=== PATIENT | male | born 1975 | race Two or more races ===

== ENCOUNTER 2017-02-24 01:53 | Emergency (ER) | payer SELFPAY ==
[~2017-02-24] VITALS: Ht 170.2 cm; Wt 86.2 kg
[2017-02-24] MEDS ORDERED: IV NORMAL SALINE 1000ML BAG 1,000 ML IV SCH (02:30)
[2017-02-24] MEDS ORDERED: ONDANSETRON PF 4 MG/2 ML VIAL. IV ONE ×2 (02:30→03:30)
[2017-02-24] MEDS ORDERED: KETOROLAC TROMETHAMINE 30 MG/ML INJ. IV ONE (02:30)
--- NOTE | 2017-02-24 02:32 | PHYS DOC ---
Past Medical History Past Medical History: No Pertinent History Past Surgical History: No Surgical History Alcohol Use: None Drug Use: None Adult General Chief Complaint Chief Complaint: ABDOMINAL PAIN HPI HPI Patient is a 41 year old male who presents with family for multiple episodes of nonbloody nonbilious emesis and nonbloody diarrhea associated with mild crampy diffuse abdominal pain, chills and sweats, myalgia, and headache. He thinks he has food poisoning. He denies sick contacts, recent travel or antibiotics. He denies measured fever, chest pain, cough, dyspnea, rhinorrhea, nasal congestion, sore throat, dysuria, back pain. Review of Systems Review of Systems Constitutional: Denies measured fever [] Eyes: Denies change in visual acuity, redness, or eye pain [] HENT: Denies nasal congestion or sore throat [] Respiratory: Denies cough or shortness of breath [] Cardiovascular: No additional information not addressed in HPI [] GI: Denies bloody stools or bloody emesis [] : Denies dysuria or hematuria [] Musculoskeletal: Denies back pain or joint pain [] Integument: Denies rash or skin lesions [] Neurologic: Denies focal weakness or sensory changes [] Endocrine: Denies polyuria or polydipsia [] Current Medications Current Medications Current Medications Medications (Trade) Dose Ordered Sig/Courtney Start Time Stop Time Status Last Admin Dose Admin Ketorolac Tromethamine (Toradol) 15 mg 1X ONCE 02/24/17 02:30 02/24/17 02:31 DC 02/24/17 02:42 15 MG Loperamide HCl (Imodium) 2 mg 1X ONCE 02/24/17 03:30 02/24/17 03:31 DC 02/24/17 03:41 2 MG Multi-Ingredient Mouthwash/Gargle (Gi Cocktail Single Dose) 15 ml 1X ONCE 02/24/17 03:30 02/24/17 03:31 DC 02/24/17 03:41 15 ML Ondansetron HCl (Zofran) 4 mg 1X ONCE 02/24/17 03:30 02/24/17 03:31 DC 02/24/17 03:41 4 MG Sodium Chloride (Iv Sodium Chloride 0.9% 1000ml Bag) 1,000 ml @ 1,000 mls/hr Q1H 02/24/17 02:30 02/24/17 03:29 DC 02/24/17 02:34 1,000 MLS/HR Allergies Allergies Allergies Coded Allergies Type Severity Reaction Last Updated Verified No Known Drug Allergies 02/24/17 No Physical Exam Physical Exam Constitutional: Well developed, well nourished, no acute distress, non-toxic appearance. [] HENT: Normocephalic, atraumatic, bilateral external ears normal, oropharynx moist, nose normal. [] Eyes: PERRLA, EOMI. [] Neck: Normal range of motion, supple. [] Cardiovascular:Heart rate regular rhythm [] Lungs & Thorax: Bilateral breath sounds clear to auscultation [] Abdomen: Bowel sounds normal, soft, mild general tenderness, no guarding or rebound. [] Skin: Warm, dry, no erythema, no rash. [] Back: No tenderness, no CVA tenderness. [] Extremities: No tenderness, ROM intact, no edema. [] Neurologic: Alert and oriented X 3, normal motor function, normal sensory function, no focal deficits noted. [] Psychologic: Affect normal, judgement normal, mood normal. [] Current Patient Data Vital Signs Vital Signs Date Time Temp Pulse Resp B/P Pulse Ox O2 Delivery O2 Flow Rate FiO2 02/24/17 02:07 100.8 108 16 124/74 95 Room Air 100.8 Lab Values Laboratory Tests Test 02/24/17 02:41 POC Hemoglobin 16.3g/dL (14-18) POC Hematocrit 48% (37-52) POC Sodium 137mmol/L (135-145) POC Potassium 3.9mmol/L (3.5-5.0) POC Chloride 100mmol/L (98-110) POC Total CO2 23mmol/L (23-32) Anion Gap 19mmol/L (6-14) H POC Blood Urea Nitrogen 18mg/dL (8-26) POC Creatinine 0.6mg/dL (0.5-1.4) Glucose Level 112mg/dL (70-99) H POC Ionized Calcium (Juan) 1.16mmol/L (1.13-1.32) Laboratory Tests 02/24/17 02:41 Course & Med Decision Making Course & Med Decision Making Pertinent Labs and Imaging studies reviewed. (See chart for details) Workup is unremarkable. He is feeling better after medications and tolerating oral intake. Discussed supportive care. Return precautions given. He understands and agrees with plan. Dragon Disclaimer Dragon Disclaimer This electronic medical record was generated, in whole or in part, using a voice recognition dictation system. Departure Departure Impression: Primary Impression: Nausea vomiting and diarrhea Disposition: 01 HOME, SELF-CARE Condition: STABLE Referrals: NO PCP (PCP) Patient Instructions: Diet for Diarrhea, Adult, Nausea and Vomiting, Easy-to- Read Additional Instructions: Take promethazine as needed for nausea. Take Tylenol or ibuprofen as needed for pain. Take Imodium as needed to slow diarrhea. Drink liquids to stay hydrated. Follow-up with your primary care doctor within one week. Return for any concerns. Scripts Promethazine Hcl 25 Mg Tablet1 Tab PO PRN Q6HRS PRN NAUSEA #10 TAB Prov:Raymond ALVAREZ MD 02/24/17 Raymond ALVAREZ MD Feb 24, 2017 02:32
[2017-02-24 02:50] LABS: POTASSIUM ISTAT 3.9 mmol/L (3.5-5.0)
[2017-02-24] MEDS ORDERED: LIDO:MAALOX:DONNATAL 1:1:1 15 ML SINGLE DOSE SWSW ONE (03:30)
[2017-02-24] MEDS ORDERED: LOPERAMIDE 2 MG CAPSULE PO ONE (03:30)
[2017-02-24] MEDS ORDERED: PROM25TA10 PO (04:06)
[2017-02-24 04:23] VITALS: BP 126/74
== END 2017-02-24 04:25 | disposition home or self-care (01) ==
LOC: ER 01:53
DX: R11.2 Nausea with vomiting, unspecified (principal); R19.7 Diarrhea, unspecified; R51 Headache; M79.1 Myalgia; R10.84 Generalized abdominal pain
CPT/HCPCS: 80047; 96361; 96374; 96375; 96376; 99285; J1885; J2405; J7030

== ENCOUNTER 2019-08-16 01:15 | Emergency (ER) | payer SELFPAY ==
[~2019-08-16] VITALS: Ht 170.2 cm; Wt 90.7 kg
[~2019-08-16 01:15] MED LIST: PROM25TA10 PO
[2019-08-16] MEDS ORDERED: ONDANSETRON PF 4 MG/2 ML VIAL. IV ONE (02:00)
[2019-08-16] MEDS ORDERED: IV NORMAL SALINE 1000ML BAG 1,000 ML IV SCH (02:00)
[2019-08-16] MEDS ORDERED: KETOROLAC 30 MG/ML VIAL. IV ONE (02:00)
[2019-08-16 02:03] LABS: BASO # 0.1 x10^3/uL (0.0-0.2); BASO % 1 % (0-3); EOS # 0.1 x10^3/uL (0.0-0.7); EOS % 1 % (0-3); HEMATOCRIT 42.3 % (39.0-53.0); HEMOGLOBIN 14.6 g/dL (13.0-17.5); LYMPH # 3.4 x10^3/uL (1.0-4.8); LYMPH % 38 % (24-48); MEAN CORPUSCULAR HEMOGLOBIN 31 pg (25-35); MEAN CORPUSCULAR HGB CONC 35 g/dL (31-37); MEAN CORPUSCULAR VOLUME 90 fL (79-100); MONO # 0.5 x10^3/uL (0.0-1.1); MONO % 6 % (0-9); NEUT # 4.8 x10^3/uL (1.8-7.7); NEUT % 54 % (31-73); PLATELET COUNT 238 x10^3/uL (140-400); RED BLOOD COUNT 4.71 x10^6/uL (4.30-5.70); RED CELL DISTRIBUTION WIDTH 13.1 % (11.5-14.5); WHITE BLOOD COUNT 8.9 x10^3/uL (4.0-11.0)
[2019-08-16 02:04] LABS: BILIRUBIN,URINE NEGATIVE (NEG); CLARITY,URINE CLEAR; COLOR,URINE YELLOW; NITRITE,URINE NEGATIVE (NEG); PROTEIN,URINE NEGATIVE (NEG-TRACE); UROBILINOGEN,URINE 0.2 mg/dL (0.2 mg/dL)
[2019-08-16 02:09] LABS: BACTERIA,URINE 0 /HPF (0-FEW); CALCIUM 8.8 mg/dL (8.5-10.1); CREATININE 0.8 mg/dL (0.7-1.3); GFR 105.5; POTASSIUM 3.7 mmol/L (3.5-5.1); RBC,URINE OCC /HPF (0-2); SQUAMOUS EPITHELIAL CELL,UR OCC /LPF
[2019-08-16 02:14] LABS: ALBUMIN 3.8 g/dL (3.4-5.0); TOTAL BILIRUBIN 0.2 mg/dL (0.2-1.0); TOTAL PROTEIN 7.6 g/dL (6.4-8.2)
--- NOTE | 2019-08-16 03:02 | RAD ---
CT abdomen and pelvis without contrast: Reason for examination: Left flank and groin pain today with nausea. Helical images were obtained through the abdomen and pelvis with no intravenous or oral contrast administered. Reconstruction was performed in sagittal and coronal planes. Exposure: One or more of the following individualized dose reduction techniques were utilized for this examination: 1. Automated exposure control 2. Adjustment of the mA and/or kV according to patient size 3. Use of iterative reconstruction technique. The lung bases are clear. The heart size is normal with no pericardial effusion. No focal abnormalities are seen at the liver, spleen, gallbladder, adrenal glands or pancreas. The abdominal aorta and inferior vena cava show no acute abnormalities. The colon shows no diverticulosis, diverticulitis or colitis. No abnormality seen at the appendix. The small intestinal tract shows no abnormal dilatation or evidence of obstruction. No abnormality seen at the stomach. The kidneys show no renal masses, renal calculi, hydronephrosis or evidence of obstructive uropathy. No abnormality seen at the bladder, prostate gland or seminal vesicles. No free fluid or free air seen in the abdomen or pelvis. There are a few lymph nodes seen bilaterally in the groin. No acute bony abnormalities are seen. IMPRESSION: No renal calculi, hydronephrosis or evidence of obstructive uropathy. No evidence of diverticulitis. No abnormality seen at the appendix. No acute abnormality seen in the abdomen or pelvis. Electronically signed by: Edith Newberry MD (08/16/2019 2:59 AM) [facility]
--- NOTE | 2019-08-16 03:05 | PHYS DOC ---
Past Medical History Past Medical History: No Pertinent History Past Surgical History: No Surgical History Alcohol Use: None Drug Use: None Adult General Chief Complaint Chief Complaint: GROIN PAIN HPI HPI Patient is a 43-year-old male who presents with complaint of left-sided lank/left lower abdominal pain that started earlier today. Patient states that the pain waxes and wanes and seems to come every few minutes. He denies any nausea or vomiting. He also denies any diarrhea. He states that right now the pain is mild but when it comes it gets much worse. He denies any urinary discomfort states that there is no pain in his genitals. He also denies any pain in his back. Patient is not aware of any exacerbating or alleviating factors.[] Review of Systems Review of Systems Constitutional: Denies fever or chills [] Respiratory: Denies cough or shortness of breath [] Cardiovascular: No additional information not addressed in HPI [] GI: Complains of left lower abdominal pain without vomiting or diarrhea [] : Denies dysuria or hematuria [] Musculoskeletal: Denies back pain or joint pain [] All other systems were reviewed and found to be within normal limits, except as documented in this note. Current Medications Current Medications Current Medications Medications (Trade) Dose Ordered Sig/Courtney Start Time Stop Time Status Last Admin Dose Admin Ketorolac Tromethamine (Toradol 30mg Vial) 30 mg 1X ONCE 08/16/19 02:00 08/16/19 02:01 DC 08/16/19 02:01 30 MG Ondansetron HCl (Zofran) 4 mg 1X ONCE 08/16/19 02:00 08/16/19 02:01 DC 08/16/19 02:01 4 MG Sodium Chloride 1,000 ml @ 1,000 mls/hr Q1H 08/16/19 02:00 08/16/19 02:59 DC 08/16/19 02:01 1,000 MLS/HR Allergies Allergies Allergies Coded Allergies Type Severity Reaction Last Updated Verified No Known Drug Allergies 02/24/17 No Physical Exam Physical Exam Constitutional: Well developed, well nourished, no acute distress, non-toxic appearance. [] HENT: Normocephalic, atraumatic, bilateral external ears normal, oropharynx moist, no oral exudates, nose normal. [] Eyes: PERRLA, EOMI, conjunctiva normal, no discharge. [] Neck: Normal range of motion, no tenderness, supple, no stridor. [] Cardiovascular: Regular rate and rhythm[] Lungs & Thorax: Bilateral breath sounds clear to auscultation [] Abdomen: Bowel sounds normal, soft, no tenderness. [] Skin: Warm, dry, no erythema, no rash. [] Extremities: No tenderness, no cyanosis, no clubbing, ROM intact, no edema. [] Neurologic: Alert and oriented X 3, no focal deficits noted. [] Current Patient Data Vital Signs Vital Signs Date Time Temp Pulse Resp B/P (MAP) Pulse Ox O2 Delivery O2 Flow Rate FiO2 08/16/19 03:15 58 14 128/80 (96) 96 Room Air 08/16/19 01:23 97.5 97.5 Lab Values Laboratory Tests Test 08/16/19 01:50 White Blood Count 8.9 x10^3/uL (4.0-11.0) Red Blood Count 4.71 x10^6/uL (4.30-5.70) Hemoglobin 14.6 g/dL (13.0-17.5) Hematocrit 42.3 % (39.0-53.0) Mean Corpuscular Volume 90 fL (79-100) Mean Corpuscular Hemoglobin 31 pg (25-35) Mean Corpuscular Hemoglobin Concent 35 g/dL (31-37) Red Cell Distribution Width 13.1 % (11.5-14.5) Platelet Count 238 x10^3/uL (140-400) Neutrophils (%) (Auto) 54 % (31-73) Lymphocytes (%) (Auto) 38 % (24-48) Monocytes (%) (Auto) 6 % (0-9) Eosinophils (%) (Auto) 1 % (0-3) Basophils (%) (Auto) 1 % (0-3) Neutrophils # (Auto) 4.8 x10^3/uL (1.8-7.7) Lymphocytes # (Auto) 3.4 x10^3/uL (1.0-4.8) Monocytes # (Auto) 0.5 x10^3/uL (0.0-1.1) Eosinophils # (Auto) 0.1 x10^3/uL (0.0-0.7) Basophils # (Auto) 0.1 x10^3/uL (0.0-0.2) Urine Collection Type Unknown Urine Color Yellow Urine Clarity Clear Urine pH 6.0 Urine Specific [place] 1.015 Urine Protein Negative mg/dL (NEG-TRACE) Urine Glucose (UA) Negative mg/dL (NEG) Urine Ketones (Stick) Negative mg/dL (NEG) Urine Blood Trace (NEG) Urine Nitrite Negative (NEG) Urine Bilirubin Negative (NEG) Urine Urobilinogen Dipstick 0.2 mg/dL (0.2 mg/dL) Urine Leukocyte Esterase Negative (NEG) Urine RBC Occ /HPF (0-2) Urine WBC 1-4 /HPF (0-4) Urine Squamous Epithelial Cells Occ /LPF Urine Bacteria 0 /HPF (0-FEW) Urine Mucus Mod /LPF Sodium Level 139 mmol/L (136-145) Potassium Level 3.7 mmol/L (3.5-5.1) Chloride Level 104 mmol/L (98-107) Carbon Dioxide Level 26 mmol/L (21-32) Anion Gap 9 (6-14) Blood Urea Nitrogen 13 mg/dL (8-26) Creatinine 0.8 mg/dL (0.7-1.3) Estimated GFR (Cockcroft-Gault) 105.5 BUN/Creatinine Ratio 16 (6-20) Glucose Level 100 mg/dL (70-99) H Calcium Level 8.8 mg/dL (8.5-10.1) Total Bilirubin 0.2 mg/dL (0.2-1.0) Aspartate Amino Transferase (AST) 19 U/L (15-37) Alanine Aminotransferase (ALT) 40 U/L (16-63) Alkaline Phosphatase 84 U/L (46-116) Total Protein 7.6 g/dL (6.4-8.2) Albumin 3.8 g/dL (3.4-5.0) Albumin/Globulin Ratio 1.0 (1.0-1.7) Lipase 126 U/L (73-393) Laboratory Tests 08/16/19 01:50 Laboratory Tests 08/16/19 01:50 EKG EKG [] Radiology/Procedures Radiology/Procedures [] Impressions: PROCEDURE: CT ABDOMEN PELVIS WO CONTRAST CT abdomen and pelvis without contrast: Reason for examination: Left flank and groin pain today with nausea. Helical images were obtained through the abdomen and pelvis with no intravenous or oral contrast administered. Reconstruction was performed in sagittal and coronal planes. Exposure: One or more of the following individualized dose reduction techniques were utilized for this examination: 1. Automated exposure control 2. Adjustment of the mA and/or kV according to patient size 3. Use of iterative reconstruction technique. The lung bases are clear. The heart size is normal with no pericardial effusion. No focal abnormalities are seen at the liver, spleen, gallbladder, adrenal glands or pancreas. The abdominal aorta and inferior vena cava show no acute abnormalities. The colon shows no diverticulosis, diverticulitis or colitis. No abnormality seen at the appendix. The small intestinal tract shows no abnormal dilatation or evidence of obstruction. No abnormality seen at the stomach. The kidneys show no renal masses, renal calculi, hydronephrosis or evidence of obstructive uropathy. No abnormality seen at the bladder, prostate gland or seminal vesicles. No free fluid or free air seen in the abdomen or pelvis. There are a few lymph nodes seen bilaterally in the groin. No acute bony abnormalities are seen. IMPRESSION: No renal calculi, hydronephrosis or evidence of obstructive uropathy. No evidence of diverticulitis. No abnormality seen at the appendix. No acute abnormality seen in the abdomen or pelvis. Electronically signed by: Edith Newberry MD (08/16/2019 2:59 AM) [id number] Course & Med Decision Making Course & Med Decision Making Pertinent Labs and Imaging studies reviewed. (See chart for details) [] Dragon Disclaimer Dragon Disclaimer This electronic medical record was generated, in whole or in part, using a voice recognition dictation system. Departure Departure Impression: Primary Impression: Flank pain Disposition: 01 HOME, SELF-CARE Condition: STABLE Referrals: NO PCP (PCP) Patient Instructions: Abdominal Pain, Flank Pain Scripts Orphenadrine Citrate (ORPHENADRINE CITRATE) 100 Mg Tablet.er 1 TAB PO BID PRN for MUSCLE SPASMS, #14 TAB Prov: NICHO GOFF Jr. DO 08/16/19 Hydrocodone/Apap 5-325 (NORCO 5-325 TABLET) 1 Each Tablet 1-2 EACH PO PRN Q6HRS PRN for PAIN, #15 as needed for pain Prov: NICHO GOFF Jr. DO 08/16/19 NICHO GOFF Jr. DO Aug 16, 2019 03:05
[2019-08-16] MEDS ORDERED: ORPH100T PO (03:12)
[2019-08-16] MEDS ORDERED: HYDR-3164 PO (03:12)
[2019-08-16 03:15] VITALS: BP 128/80
== END 2019-08-16 03:30 | disposition home or self-care (01) ==
LOC: ER 01:15
DX: R10.32 Left lower quadrant pain (principal)
CPT/HCPCS: 36415; 74176; 80053; 81001; 83690; 85025; 96374; 96375; 99285; J1885; J2405; J7030

== ENCOUNTER 2021-03-23 20:46 | Emergency (ER) | payer SELFPAY ==
[~2021-03-23] VITALS: Ht 170.2 cm; Wt 90.0 kg
[~2021-03-23 20:46] MED LIST changes: +HYDR-3164 PO; +ORPH100T PO
[2021-03-23 21:33] VITALS: BP 162/98
[2021-03-23] MEDS ORDERED: AMOXICILLIN/K CLAV 875/125MG TABLET. PO ONE (22:30)
[2021-03-23] MEDS ORDERED: NEOMY/BACITR/POLYMYXIN OINT PACKET. TP ONE (22:30)
[2021-03-23] MEDS ORDERED: DIPH,PERTUSS(ACELL),TET VAC/PF 0.5 ML SYRINGE. VAX IM ONE (22:30)
[2021-03-23] MEDS ORDERED: AMOX1TAB61 PO (22:35)
--- NOTE | 2021-03-23 22:35 | ED.ADGEN ---
Past Medical History Past Medical History: No Pertinent History Past Surgical History: No Surgical History Smoking Status: Light Tobacco Smoker Alcohol Use: None Drug Use: None General Adult EDM: Chief Complaint: LACERATION/AVULSION HPI: HPI: Patient is a 45 year old male coming in for a puncture wound to his right index finger. Was drilling and slipped and went to his finger in the volar fat pad 6 and half hours prior to arrival. No other injuries. States he otherwise been well. Complaining of pain in his finger. Bleeding controlled with pressure dressing. Last tetanus greater than 10 years ago Review of Systems: Review of Systems: All other systems within normal limits except for as noted in the HPI Current Medications: Current Medications Medications (Trade) Dose Ordered Sig/Courtney Start Time Stop Time Status Last Admin Dose Admin Amoxicillin/ Clavulanate Potassium (Augmentin 875/ 125mg) 1 tab 1X ONCE 03/23/21 22:30 5 22:31 Diphtheria/ Tetanus/Acell Pertussis (ADACEL TDap SYRINGE) 0.5 ml ONCE ONCE 03/23/21 22:30 03/23/21 22:31 Neomycin/ Polymyxin/ Bacitracin (Triple Antibiotic Ointment) 1 pkt 1X ONCE 03/23/21 22:30 5 22:31 Allergies: Allergies: Allergies Coded Allergies Type Severity Reaction Last Updated Verified No Known Drug Allergies 02/24/17 No Physical Exam: PE: Constitutional: Well developed, well nourished, no acute distress, non-toxic appearance. [] HENT: Normocephalic, atraumatic, bilateral external ears normal, nose normal. [] Eyes: PERRLA, conjunctiva normal, no discharge. [] Neck: No rigidity, supple, no stridor. [] Cardiovascular: Regular rate and rhythm, brisk cap refill [] Lungs & Thorax: Non labored symmetric respirations, no tachypnea or respiratory distress [] Abdomen: Soft, nondistended. Skin: Warm, dry, no erythema, no rash. Small jagged puncture wound in the volar fat pad of right index finger [] Back: Unremarkable Extremities: No deformities, range of motion grossly intact, no lower extremity edema [] Neurologic: Alert and oriented X 3, no focal deficits noted. [] Psychologic: Affect normal, judgement normal, mood normal. [] Current Patient Data: Vital Signs: Vital Signs Date Time Temp Pulse Resp B/P (MAP) Pulse Ox O2 Delivery O2 Flow Rate FiO2 03/23/21 21:33 98.7 89 18 162/98 (119) 98 Room Air 98.7 EKG: EKG: [] Heart Score: C/O Chest Pain: No Risk Factors: Risk Factors: DM, Current or recent (<one month) smoker, HTN, HLP, family history of CAD, obesity. Risk Scores: Score 0 - 3: 2.5% MACE over next 6 weeks - Discharge Home Score 4 - 6: 20.3% MACE over next 6 weeks - Admit for Clinical Observation Score 7 - 10: 72.7% MACE over next 6 weeks - Early Invasive Strategies Radiology/Procedures: Radiology/Procedures: EP interpretation, no fractures [] Course & Med Decision Making: Course & Med Decision Making No associated fracture, unable to thoroughly assess depth. Due to risk of puncture wound infection and time since injury occurred will washout and dress without suturing. Tetanus updated. Sharlene Disclaimer: Sharlene Disclaimer: This electronic medical record was generated, in whole or in part, using a voice recognition dictation system. Departure Departure Impression: Primary Impression: Puncture wound without foreign body of left index finger without damage to nail, initial encounter Disposition: HOME / SELF CARE / HOMELESS Condition: STABLE Referrals: NO PCP (PCP) Patient Instructions: Wound Care, [id number] Scripts Amoxicillin/Potassium Clav (AUGMENTIN 875-125 TABLET) 1 Each Tablet 1 TAB PO BID for antibioitico for 7 Days, #14 TAB 0 Refills Prov: ESSIE DUNNE MD 03/23/21 ESSIE DUNNE MD March 23, 2021 22:35
--- NOTE | 2021-03-23 23:00 | RAD ---
XR FINGER(S)_LEFT 2+VIEWS_RT Clinical Indication: Reason: puncture wound / Comparison: None. Findings: No acute fracture of the second finger. Joint spaces are maintained. No soft tissue swelling is seen radiographically. There is no radiopaque foreign body. No bone erosion. The mineralization is normal. Irregularity of the distal tuft of the third finger may be congenital or due to old injury. The mine ralization is normal. IMPRESSION: No acute fracture. Electronically signed by: Go Sánchez MD (03/23/2021 10:57 PM) [place]
== END 2021-03-23 23:22 | disposition home or self-care (01) ==
LOC: ER 20:46
DX: S61.203A Unspecified open wound of left middle finger without damage to nail, initial encounter (principal); Z72.0 Tobacco use; Y28.8XXA Contact with other sharp object, undetermined intent, initial encounter; Y93.89 Activity, other specified; Y92.89 Other specified places as the place of occurrence of the external cause; Y99.8 Other external cause status
CPT/HCPCS: 73140; 90471; 90715; 99283

== ENCOUNTER 2022-03-11 22:31 | Emergency (ER) | payer SELFPAY ==
[~2022-03-11] VITALS: Ht 165.1 cm; Wt 72.0 kg
[~2022-03-11 22:31] MED LIST changes: +AMOX1TAB61 PO
--- NOTE | 2022-03-12 02:59 | RAD ---
LEFT HAND, VIEWS 3 Indication: Reason: fall left hand pain / Spl. Instructions: / History: Comparison: Left finger, 3 views March 23, 2021 Findings: There is acute traumatic oblique longitudinal fracture of the proximal and mid diaphysis of the fourt h metacarpal. The fracture is without significant displacement. There is slight dorsal angulation of the distal fracture fragment on the lateral view. There is moderate dorsal soft tissue swelling of th e hand. Bony articulations are normal. There is no bony erosion. Mineralization is normal. Question old fract ure of the distal neck of the fifth metacarpal. IMPRESSION: There is acute traumatic fracture of the fourth metacarpal. Electronically signed by: Go Sánchez MD (03/12/2022 2:56 AM) [facility]
--- NOTE | 2022-03-12 03:15 | PHYS DOC ---
Past Medical History Past Medical History: No Pertinent History Past Surgical History: No Surgical History Smoking Status: Never Smoker Alcohol Use: None Drug Use: None General Adult EDM: Chief Complaint: HAND PROBLEM HPI: HPI: 46-year-old male presents with injury to the dorsum of his left hand. Got slammed on a back of a counter. States that it was an accident. No other injury. No wrist pain. Review of Systems: Review of Systems: Constitutional: Denies fever or chills. [] Eyes: Denies change in visual acuity. [] HENT: Denies nasal congestion or sore throat. [] Respiratory: Denies cough or shortness of breath. [] Cardiovascular: Denies chest pain or edema. [] GI: Denies abdominal pain, nausea, vomiting, bloody stools or diarrhea. [] : Denies dysuria. [] Musculoskeletal: Left hand pain Integument: Denies rash. [] Neurologic: Denies headache, focal weakness or sensory changes. [] Endocrine: Denies polyuria or polydipsia. [] Lymphatic: Denies swollen glands. [] Psychiatric: Denies depression or anxiety. [] Heart Score: C/O Chest Pain: No Risk Factors: Risk Factors: DM, Current or recent (<one month) smoker, HTN, HLP, family history of CAD, obesity. Risk Scores: Score 0 - 3: 2.5% MACE over next 6 weeks - Discharge Home Score 4 - 6: 20.3% MACE over next 6 weeks - Admit for Clinical Observation Score 7 - 10: 72.7% MACE over next 6 weeks - Early Invasive Strategies Allergies: Allergies: Allergies Coded Allergies Type Severity Reaction Last Updated Verified No Known Drug Allergies 02/24/17 No Physical Exam: PE: ENT Constitutional: Well developed, well nourished, no acute distress, non-toxic appearance. [] HENT: Normocephalic, atraumatic, bilateral external ears normal, oropharynx moist, no oral exudates, nose normal. [] Eyes: PERRLA, EOMI, conjunctiva normal, no discharge. [] Neck: Normal range of motion, no tenderness, supple, no stridor. [] Cardiovascular:Heart rate regular rhythm, no murmur [] Lungs & Thorax: Bilateral breath sounds clear to auscultation [] Abdomen: Bowel sounds normal, soft, no tenderness, no masses, no pulsatile masses. [] Skin: Warm, dry, no erythema, no rash. [] Back: No tenderness, no CVA tenderness. [] Extremities: Left hand displays swelling on the dorsum f. No pain with palpation over the anatomical snuffbox, intact radial pulses in both upper extremities Neurologic: Alert and oriented X 3, normal motor function, normal sensory function, no focal deficits noted. [] Psychologic: Affect normal, judgement normal, mood normal. [] Current Patient Data: Vital Signs: Vital Signs Date Time Temp Pulse Resp B/P (MAP) Pulse Ox O2 Delivery O2 Flow Rate FiO2 03/12/22 00:20 98.0 80 18 138/88 (105) 99 Room Air 98.0 EKG: EKG: [] Radiology/Procedures: Radiology/Procedures: [] Course & Med Decision Making: Course & Med Decision Making Patient placed in boxer splint by the nursing staff. After the splint was placed the extremity was neurovascularly intact. He will follow-up in 1 week in the Ortho office. Sharlene Disclaimer: Sharlene Disclaimer: This electronic medical record was generated, in whole or in part, using a voice recognition dictation system. Departure Departure Impression: Primary Impression: Fracture of fourth metacarpal bone Disposition: HOME / SELF CARE / HOMELESS Condition: STABLE Referrals: MARCEL GUZMAN II, MD Patient Instructions: Hand Fracture, Fifth Metacarpal Additional Instructions: Please see the bone doctor in 7 to 10 days GINO DAVIS MD March 12, 2022 03:14
[2022-03-12 03:16] VITALS: BP 156/98
== END 2022-03-12 03:20 | disposition home or self-care (01) ==
LOC: ER 22:31
DX: S62.305A Unspecified fracture of fourth metacarpal bone, left hand, initial encounter for closed fracture (principal); X58.XXXA Exposure to other specified factors, initial encounter; Y93.89 Activity, other specified; Y92.89 Other specified places as the place of occurrence of the external cause; Y99.8 Other external cause status
CPT/HCPCS: 29125; 73130; 99283